=== PATIENT | male | born 1985 | race Hispanic/Latino ===

== ENCOUNTER 2018-05-27 16:47 | Emergency (ER) | payer BC ==
[2018-05-27] MEDS ORDERED: KETOROLAC TROMETHAMINE 60 MG/2 ML VIAL ONE (17:08)
== END 2018-05-27 18:04 | disposition home or self-care (01) ==
LOC: EDH 16:47
DX: M72.2 Plantar fascial fibromatosis (principal)
CPT/HCPCS: 96372; 99283; J1885